=== PATIENT | female | born 1985 | race Two or more races ===

== ENCOUNTER 2025-01-17 10:00 | Outpatient (CLI) | payer MEDICAID | END 2025-01-17 17:00 | disposition home or self-care (01) | LOC: RT 10:00 | PROVIDERS: ATTEND Internal Medicine Pulmonary Disease | DX: J45.909 Unspecified asthma, uncomplicated (principal); R06.00 Dyspnea, unspecified | CPT/HCPCS: 94060; 94727; 94729 ==